=== PATIENT | female | born 2000 | race African-American/Black ===

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

== ENCOUNTER 2021-01-23 21:02 | Emergency (ER) | payer OTHER ==
[~2021-01-23] VITALS: Ht 154.9 cm; Wt 109.7 kg
[~2021-01-23 21:02] MED LIST: FAMO-135 MT; TOPUD PO
[2021-01-23] MEDS ORDERED: TETANUS, DIPHTHERIA, PERTUSSIS VAC/PF 0.5ML (>7YR OLD) IM ONE (22:45)
[2021-01-23] MEDS ORDERED: IBUPROFEN 800MG TABLET PO ONE (22:45)
[2021-01-24] MEDS ORDERED: CEPH500C2 MT (00:06)
[2021-01-24] MEDS ORDERED: IBUP-2029 MT (00:06)
[2021-01-24 00:23] VITALS: BP 130/97
== END 2021-01-24 00:24 | disposition home or self-care (01) ==
LOC: ER 21:02
DX: S90.31XA Contusion of right foot, initial encounter (principal); I10 Essential (primary) hypertension; W22.8XXA Striking against or struck by other objects, initial encounter; Y93.F1 Activity, caregiving, bathing; Y92.9 Unspecified place or not applicable
CPT/HCPCS: 73630; 90471; 90715; 99283; Z7610

== ENCOUNTER 2022-04-01 20:09 | Emergency (ER) | payer OTHER ==
[~2022-04-01] VITALS: Ht 154.9 cm; Wt 109.0 kg
[~2022-04-01 20:09] MED LIST changes: +ACET-2708 MT; +CEPH500C2 MT; +IBUP-2029 MT
[2022-04-01 23:41] LABS: CHLORIDE 105 mEq/L (98-107)
[2022-04-01 23:44] LABS: BASOPHILS % 0.8 % (0.0-2.0); EOSINOPHILS % 1.4 % (0.0-5.0); HEMATOCRIT. 40.8 % (36.0-48.0); HEMOGLOBIN. 13.7 g/dL (12.0-16.0); LYMPHOCYTES % 40.5 % (20.0-50.0); MEAN CORPUSCULAR VOLUME 89.5 fL (81.0-99.0); MEAN PLATELET VOLUME 8.2 fl (7.4-10.4); MONOCYTES % 11.8 % (2.0-8.0); NEUTROPHILS % 45.5 % (40.0-76.0); PLATELET 245 x1000/uL (130-400); RED BLOOD CELL COUNT 4.56 mill/uL (4.2-5.4); RED CELL DISTRIBUTION WIDTH 12.7 % (11.6-14.6)
[2022-04-02] MEDS ORDERED: OMEP20TA23 MT (00:22)
[2022-04-02 00:34] VITALS: BP 112/70
== END 2022-04-02 00:36 | disposition home or self-care (01) ==
LOC: ER 20:09
DX: R10.13 Epigastric pain (principal); K82.4 Cholesterolosis of gallbladder; I10 Essential (primary) hypertension; K21.9 Gastro-esophageal reflux disease without esophagitis; E66.01 Morbid (severe) obesity due to excess calories; Z68.42 Body mass index [BMI] 45.0-49.9, adult
CPT/HCPCS: 36415; 76705; 80053; 85025; 99284

== ENCOUNTER 2022-06-30 09:20 | Emergency (ER) | payer OTHER ==
[~2022-06-30] VITALS: Ht 154.9 cm; Wt 113.0 kg
[~2022-06-30 09:20] MED LIST changes: +OMEP20TA23 MT
[2022-06-30 09:22] VITALS: BP 128/66
[2022-06-30] MEDS ORDERED: IBUPROFEN 600MG TABLET PO STA (10:38)
[2022-06-30] MEDS ORDERED: IBUP-2458 MT (11:31)
== END 2022-06-30 11:50 | disposition home or self-care (01) ==
LOC: ER 09:20
DX: B34.9 Viral infection, unspecified (principal); I10 Essential (primary) hypertension; K21.9 Gastro-esophageal reflux disease without esophagitis
CPT/HCPCS: 71045; 81025; 93005; 99283

== ENCOUNTER 2022-08-21 10:52 | Emergency (ER) | payer MEDICAID, OTHER ==
[~2022-08-21] VITALS: Ht 167.6 cm; Wt 91.0 kg
[~2022-08-21 10:52] MED LIST changes: +IBUP-2458 MT
[2022-08-21 11:03] VITALS: BP 120/83
[2022-08-21] MEDS ORDERED: IBUPROFEN 800MG TABLET PO ONE (11:30)
[2022-08-21] MEDS ORDERED: ACET-2708 MT (12:51)
[2022-08-21] MEDS ORDERED: IBUP-2029 MT (12:51)
== END 2022-08-21 13:17 | disposition home or self-care (01) ==
LOC: ER 10:52
DX: S63.681A Other sprain of right thumb, initial encounter (principal); K21.9 Gastro-esophageal reflux disease without esophagitis; I10 Essential (primary) hypertension; W22.09XA Striking against other stationary object, initial encounter; Y93.9 Activity, unspecified; Y92.9 Unspecified place or not applicable
CPT/HCPCS: 73140; 81025; 99283

== ENCOUNTER 2023-01-13 15:05 | Emergency (ER) | payer MEDICAID, OTHER ==
[~2023-01-13] VITALS: Ht 154.9 cm; Wt 113.0 kg
[2023-01-13] MEDS ORDERED: IBUPROFEN 600MG TABLET PO STA (17:21)
[2023-01-13 17:39] LABS: CLARITY URINE CLOUDY (CLEAR); COLOR URINE ORANGE (YELLOW); KETONES URINE 2+ (NEGATIVE); LEUKOCYTE ESTERASE URINE 2+ (NEGATIVE); NITRITE URINE NEGATIVE (NEGATIVE); OCCULT BLOOD URINE 3+ (NEGATIVE); PH URINE 5.5 (4.5-8.0); PROTEIN URINE 1+ (NEGATIVE); SPECIFIC GRAVITY URINE 1.029 (1.005-1.030)
[2023-01-13] MEDS ORDERED: NAPR-681 PO (18:13)
[2023-01-13] MEDS ORDERED: CEPH500T MT (18:13)
[2023-01-13] MEDS ORDERED: OMEP20TA23 MT (18:13)
[2023-01-13] MEDS ORDERED: ONDA4TAB50 PO (18:18)
[2023-01-13 18:30] VITALS: BP 133/78
== END 2023-01-13 18:45 | disposition home or self-care (01) ==
LOC: ER 15:05
DX: N39.0 Urinary tract infection, site not specified (principal); Z20.822 Contact with and (suspected) exposure to COVID-19
CPT/HCPCS: 81003; 81025; 87070; 87426; 87430; 99283; C9803